=== PATIENT | female | born 1950 | race Caucasian/White ===

== ENCOUNTER 2019-01-02 22:30 | Inpatient (IN) | payer MEDICARE, BC ==
[2019-01-02] MEDS ORDERED: SODIUM CHLORIDE 0.9% 1,000 ML IV STA (23:11)
[2019-01-02 23:23] LABS: Basophils # (A) 0.1 k/uL (0-0.2); Basophils % (A) 1 %; Eosinophils # (A) 0.2 k/uL (0-0.7); Eosinophils % (A) 2 %; HGB 10.7 gm/dL (11.4-16.0); Lymphocytes # (A) 1.5 k/uL (1.0-4.8); Lymphocytes % (A) 18 %; MCHC 32.4 g/dL (31.0-37.0); MCV 86.5 fL (80.0-100.0); Mean Platelet Volume 6.3; Monocytes # (A) 0.5 k/uL (0-1.0); Monocytes % (A) 6 %; Neutrophils % (A) 72 %; Platelet Count 272 k/uL (150-450); RBC 3.81 m/uL (3.80-5.40); WBC 8.4 k/uL (3.8-10.6)
[2019-01-02 23:43] LABS: Albumin 3.3 g/dL (3.5-5.0); Calcium 10.3 mg/dL (8.4-10.2); Magnesium 1.9 mg/dL (1.6-2.3); Phosphorus 3.1 mg/dL (2.5-4.5); Potassium 4.8 mmol/L (3.5-5.1); Total Bilirubin 0.3 mg/dL (0.2-1.3); Total Protein 6.1 g/dL (6.3-8.2)
--- NOTE | 2019-01-03 00:21 | XR ---
EXAM: XR Abdomen, 1 View CLINICAL HISTORY: ITS.REASON XR Reason: abdominal pain TECHNIQUE: Frontal supine view of the abdomen/pelvis. COMPARISON: No relevant prior studies available. IMPRESSION: Nonspecific bowel gas pattern. No definite obstruction.
--- NOTE | 2019-01-03 00:29 | ED ---
General Adult HPI - General Source: patient, RN notes reviewed, old records reviewed Mode of arrival: EMS Limitations: no limitations <Vini Carter - Last Filed: 01/03/19 04:19> <Robert Burgess - Last Filed: 01/06/19 09:07> - General Chief complaint: Abdominal Pain Stated complaint: Near Syncope Time Seen by Provider: 01/02/19 22:48 - History of Present Illness Initial comments: 68-year-old female patient past medical history of hypertension, hyperlipidemia presents to ED with complaint of dizziness and black stool. Patient reports that she was standing for laundry at the washing machine when she began to feel lightheaded. Patient reports that this then resolved. Patient reports that she wanted a bowel movement had black stool. Patient then called EMS to present to Hospital. Upon presentation Hospital admission is currently asymptomatic. Patient denies any dizziness, denies any headache, denies any altered mental status. Patient denies any chest pain shortness of breath abdominal pain. Mariana ent denies any dysuria. Systemic: Pt denies fatigue, myalgia, fever/chills, rash. Pt denies weakness, night sweats, weight loss. Neuro: Pt denies headache, visual disturbances, syncope or pre-syncope. HEENT: Pt denies ocular discharge or irritation, otalgia, rhinorrhea, pharyngitis or notable lymphadenopathy. Cardiopulmonary: Pt denies chest pain, SOB, heart palpitations, dyspnea on exertion. Abdominal/GI: Pt denies abdominal pain, n/v/d. : Pt denies dysuria, burning w/ urination, frequency/urgency. Denies new onset urinary or bowel incontinence. MSK: Pt denies myalgia, loss of strength or function in extremities. Neuro: Pt denies new onset weakness, paresthesias. (Vini Carter) - Related Data Home Medications Medication Instructions Recorded Confirmed ALPRAZolam [Xanax] 0.5 mg PO DAILY PRN 01/02/19 01/02/19 Cholecalciferol [Vitamin D3] 1,000 unit PO DAILY 01/02/19 01/02/19 Glucosamine Sulfate 500 mg PO BID 01/02/19 01/02/19 Irbesartan 300 mg PO DAILY 01/02/19 01/02/19 Multivitamins, Thera [Multivitamin 1 tab PO DAILY 01/02/19 01/02/19 (formulary)] Pravastatin Sodium [Pravachol] 20 mg PO DAILY 01/02/19 01/02/19 Selenium 100 mcg PO DAILY 01/02/19 01/02/19 Vitamin E 1,000 unit PO DAILY 01/02/19 01/02/19 Previous Rx's Medication Instructions Recorded Acetaminophen Tab [Tylenol] 650 mg PO Q6HR PRN tab 01/06/19 Pantoprazole [Protonix] 40 mg PO AC-BID #60 tablet. 01/06/19 traMADol HCl [Ultram] 50 mg PO TID PRN #21 tab 01/06/19 Allergies Allergy/AdvReac Type Severity Reaction Status Date / Time Sulfa (Sulfonamide Allergy Rash/Hives Verified 01/02/19 23:04 Antibiotics) Review of Systems ROS Other: All systems not noted in ROS Statement are negative. <Vini Carter - Last Filed: 01/03/19 04:19> ROS Other: All systems not noted in ROS Statement are negative. <Robert Burgess - Last Filed: 01/06/19 09:07> ROS Statement: Those systems with pertinent positive or pertinent negative responses have been documented in the HPI. Past Medical History Past Medical History: Hyperlipidemia, Hypertension History of Any Multi-Drug Resistant Organisms: None Reported Past Surgical History: Back Surgery, Joint Replacement, Tubal Ligation Past Psychological History: No Psychological Hx Reported Smoking Status: Former smoker Past Alcohol Use History: Occasional Past Drug Use History: None Reported <Vini Carter - Last Filed: 01/03/19 04:19> General Exam Limitations: no limitations <Vini Carter - Last Filed: 01/03/19 04:19> - General Exam Comments Initial Comments: Constitutional: NAD, AOX3, Pt has pleasant affect. HEENT: NC/AT, trachea midline, neck supple, no lymphadenopathy. Posterior pharynx non erythematous, without exudates. External ears appear normal, without discharge. Mucous membranes moist. Eyes PERRLA, EOM intact. There is no scleral icterus. No pallor noted. Cardiopulmonary: RRR, no murmurs, rubs or gallops, no JVD noted. Lungs CTAB in anterior and posterior menjivar. No peripheral edema. Abdominal exam: Abdomen soft and non-distended. Abdomen non-tender to palpation in all 4 quadrants. Bowel sounds active in LLQ. No hepatosplenomegaly. No ecchymosis Neuro: CN II-XII grossly intact. No nuchal rigidity. MSK: No posterior calf tenderness bilaterally, homans sign negative bilaterally. Posterior tibialis and radial pulse +2 bilaterally. Sensation intact in upper and lower extremities. Full active ROM in upper and lower extremities, 5/5 stregnth. Rectal: No external hemorrhoids or active bleeding noted. Chaperogned by MARK Barillas. (Vini Carter) Course Vital Signs 01/02/19 01/02/19 01/03/19 22:40 22:42 01:25 Temperature 98.7 F Pulse Rate 79 Pulse Rate [ Sitting] Pulse Rate [ Standing] Pulse Rate [ Supine] Respiratory 20 Rate Blood Pressure 138/92 124/60 Blood Pressure [Sitting] Blood Pressure [Standing] Blood Pressure [Supine] O2 Sat by Pulse 98 Oximetry 01/03/19 01/03/19 01/03/19 02:38 03:14 04:20 Temperature 98.8 F 99.6 F Pulse Rate 90 76 Pulse Rate [ 92 Sitting] Pulse Rate [ 96 Standing] Pulse Rate [ 77 Supine] Respiratory 16 16 18 Rate Blood Pressure 160/91 134/78 Blood Pressure 128/85 [Sitting] Blood Pressure 124/89 [Standing] Blood Pressure 124/82 [Supine] O2 Sat by Pulse 99 97 97 Oximetry Medical Decision Making - Lab Data Result diagrams: 01/02/19 22:42 01/02/19 22:42 - EKG Data -: EKG Interpreted by Me (and dr sinha) <Vini Carter - Last Filed: 01/03/19 04:19> - Lab Data Result diagrams: 01/06/19 08:03 01/05/19 05:02 <Robert Burgess - Last Filed: 01/06/19 09:07> - Medical Decision Making 68-year-old female patient past medical history of hypertension, hyperlipidemia presents to ED with complaint of dizziness and black stool. Patient reports that she was standing for laundry at the washing machine when she began to feel lightheaded. Patient reports that this then resolved. Patient reports that she wanted a bowel movement had black stool. Patient then called EMS to present to Hospital. Upon presentation Hospital admission is currently asymptomatic. Patient denies any dizziness, denies any headache, denies any altered mental status. Patient denies any chest pain shortness of breath abdominal pain. Patient denies any dysuria. Patient vital signs stable, afebrile. Physical exam did not display acute pathology. Laboratory investigations revealed mild anemia, 10.7 hemoglobin. CMP revealed mild elevation of V1 at 37. Satting within normal limits. UA negative. Troponin negative. Magnesium and phosphorus within normal limits. Hemoccult positive. EKG not concerning for acute ischemia. Patient to be admitted for GI bleed. At time of admission CT abdomen and pelvis pending per request of accepting physician. Case discussed with Dr. Sinha. (Vini Carter) I saw this patient in conjunction with the physician operator assistant i cementing. I performed independent history and physical exam. Agree with case management. (Robert Burgess) - Lab Data Lab Results 01/02/19 01/02/19 01/02/19 Range/Units 22:42 22:42 22:42 WBC 8.4 (3.8-10.6) k/uL RBC 3.81 (3.80-5.40) m/uL Hgb 10.7 L (11.4-16.0) gm/dL Hct 33.0 L (34.0-46.0) % MCV 86.5 (80.0-100.0) fL MCH 28.0 (25.0-35.0) pg MCHC 32.4 (31.0-37.0) g/dL RDW 13.0 (11.5-15.5) % Plt Count 272 (150-450) k/uL Neutrophils % 72 % Lymphocytes % 18 % Monocytes % 6 % Eosinophils % 2 % Basophils % 1 % Neutrophils # 6.0 (1.3-7.7) k/uL Lymphocytes # 1.5 (1.0-4.8) k/uL Monocytes # 0.5 (0-1.0) k/uL Eosinophils # 0.2 (0-0.7) k/uL Basophils # 0.1 (0-0.2) k/uL Sodium 138 (137-145) mmol/L Potassium 4.8 (3.5-5.1) mmol/L Chloride 106 (98-107) mmol/L Carbon Dioxide 26 (22-30) mmol/L Anion Gap 6 mmol/L BUN 37 H (7-17) mg/dL Creatinine 0.95 (0.52-1.04) mg/dL Est GFR (CKD-EPI)AfAm 71 (>60 ml/min/1.73 sqM) Est GFR (CKD-EPI)NonAf 61 (>60 ml/min/1.73 sqM) Glucose 120 H (74-99) mg/dL Plasma Lactic Acid Marquise 1.3 (0.7-2.0) mmol/L Calcium 10.3 H (8.4-10.2) mg/dL Phosphorus 3.1 (2.5-4.5) mg/dL Magnesium 1.9 (1.6-2.3) mg/dL Total Bilirubin 0.3 (0.2-1.3) mg/dL AST 21 (14-36) U/L ALT 26 (9-52) U/L Alkaline Phosphatase 85 (38-126) U/L Troponin I (0.000-0.034) ng/mL Total Protein 6.1 L (6.3-8.2) g/dL Albumin 3.3 L (3.5-5.0) g/dL Lipase 151 (23-300) U/L Urine Color Urine Appearance (Clear) Urine pH (5.0-8.0) Ur Specific [place] (1.001-1.035) Urine Protein (Negative) Urine Glucose (UA) (Negative) Urine Ketones (Negative) Urine Blood (Negative) Urine Nitrite (Negative) Urine Bilirubin (Negative) Urine Urobilinogen (<2.0) mg/dL Ur Leukocyte Esterase (Negative) Urine RBC (0-5) /hpf Urine WBC (0-5) /hpf Ur Squamous Epith Cells (0-4) /hpf Urine Bacteria (None) /hpf Hyaline Casts (0-2) /lpf Urine Mucus (None) /hpf Stool Occult Blood (Negative) 01/02/19 01/03/19 01/03/19 Range/Units 22:42 01:05 02:00 WBC (3.8-10.6) k/uL RBC (3.80-5.40) m/uL Hgb (11.4-16.0) gm/dL Hct (34.0-46.0) % MCV (80.0-100.0) fL MCH (25.0-35.0) pg MCHC (31.0-37.0) g/dL RDW (11.5-15.5) % Plt Count (150-450) k/uL Neutrophils % % Lymphocytes % % Monocytes % % Eosinophils % % Basophils % % Neutrophils # (1.3-7.7) k/uL Lymphocytes # (1.0-4.8) k/uL Monocytes # (0-1.0) k/uL Eosinophils # (0-0.7) k/uL Basophils # (0-0.2) k/uL Sodium (137-145) mmol/L Potassium (3.5-5.1) mmol/L Chloride (98-107) mmol/L Carbon Dioxide (22-30) mmol/L Anion Gap mmol/L BUN (7-17) mg/dL Creatinine (0.52-1.04) mg/dL Est GFR (CKD-EPI)AfAm (>60 ml/min/1.73 sqM) Est GFR (CKD-EPI)NonAf (>60 ml/min/1.73 sqM) Glucose (74-99) mg/dL Plasma Lactic Acid Marquise (0.7-2.0) mmol/L Calcium (8.4-10.2) mg/dL Phosphorus (2.5-4.5) mg/dL Magnesium (1.6-2.3) mg/dL Total Bilirubin (0.2-1.3) mg/dL AST (14-36) U/L ALT (9-52) U/L Alkaline Phosphatase (38-126) U/L Troponin I <0.012 (0.000-0.034) ng/mL Total Protein (6.3-8.2) g/dL Albumin (3.5-5.0) g/dL Lipase (23-300) U/L Urine Color Yellow Urine Appearance Clear (Clear) Urine pH 5.5 (5.0-8.0) Ur Specific [place] 1.016 (1.001-1.035) Urine Protein Negative (Negative) Urine Glucose (UA) Negative (Negative) Urine Ketones Negative (Negative) Urine Blood Negative (Negative) Urine Nitrite Negative (Negative) Urine Bilirubin Negative (Negative) Urine Urobilinogen <2.0 (<2.0) mg/dL Ur Leukocyte Esterase Small H (Negative) Urine RBC <1 (0-5) /hpf Urine WBC 3 (0-5) /hpf Ur Squamous Epith Cells <1 (0-4) /hpf Urine Bacteria Rare H (None) /hpf Hyaline Casts 3 H (0-2) /lpf Urine Mucus Rare H (None) /hpf Stool Occult Blood Positive H (Negative) - EKG Data EKG Comments: Ventricular rate 79, FL interval 136, QRS 86, QT/QTC 372/426. Normal sinus rhythm, inferior infarct age undetermined. (Vini Carter) Disposition Is patient prescribed a controlled substance at d/c from ED?: No <Vini Carter - Last Filed: 01/03/19 04:19> <Robert Burgess - Last Filed: 01/06/19 09:07> Clinical Impression: GI bleed Disposition: ADMITTED IP TO THIS HOSP Condition: Serious
[2019-01-03 02:15] LABS: Appearance,Urine Clear (Clear); Bacteria,Urine Rare /hpf; Bilirubin,Urine Negative (Negative); Blood,Urine Negative (Negative); Color,Urine Yellow; Glucose,Urine (UA) Negative (Negative); Hyaline Casts,Urine 3 /lpf (0-2); Ketones,Urine Negative (Negative); Leukocyte Esterase,Urine Small (Negative); Mucus,Urine Rare /hpf; Nitrite,Urine Negative (Negative); PH, Urine 5.5 (5.0-8.0); Protein,Urine Negative (Negative); RBC,Urine <1 /hpf (0-5); Specific Gravity,Urine 1.016 (1.001-1.035); Squamous Epithelial Cell,Urine <1 /hpf (0-4); Urobilinogen,Urine <2.0 mg/dL (<2.0)
[2019-01-03] MEDS ORDERED: NALOXONE 0.4 MG/ML 1 ML VIAL IV PRN (03:15)
[2019-01-03] MEDS ORDERED: ACETAMINOPHEN TAB 325 MG TAB PO STA (03:20)
--- NOTE | 2019-01-03 03:36 | CT ---
EXAM: CT Abdomen and Pelvis With Intravenous Contrast CLINICAL HISTORY: ITS.REASON CT Reason: Pain TECHNIQUE: Axial computed tomography images of the abdomen and pelvis with intravenous contrast. CTDI is 29 mGy and DLP is 1617 mGy-cm. This CT exam was performed using one or more of the following dose reduction techniques: automated exposure control, adjustment of the mA and/or kV according to patient size, and/or use of iterative reconstruction technique. COMPARISON: KUB 01/03/19 FINDINGS: Lung bases: No mass. No consolidation. ABDOMEN: Liver: Unremarkable. Gallbladder and bile ducts: Unremarkable. Pancreas: Unremarkable. Spleen: Unremarkable. Adrenals: 2.5 cm right adrenal nodule. Kidneys and ureters: No hydronephrosis. Stomach and bowel: No bowel obstruction or bowel wall thickening. Colonic diverticulosis. Diffusely fluid-filled small bowel. PELVIS: Appendix: No evidence of appendicitis. Bladder: Unremarkable. Reproductive: Unremarkable. ABDOMEN and PELVIS: Intraperitoneal space: Unremarkable. Bones/joints: No acute fractures. Degenerative changes at L4-5 and L5- S1. Soft tissues: Unremarkable. Vasculature: No abdominal aortic aneurysm. Lymph nodes: No enlarged lymph nodes. IMPRESSION: 1. Diffusely fluid-filled small bowel, correlate with gastroenteritis. 2. Colonic diverticulosis. 3. 2.5 cm right adrenal nodule.
[2019-01-03] MEDS: SODIUM CHLORIDE 0.9% 1,000 ML IV SCH ×2 (04:47→20:56)
--- NOTE | 2019-01-03 06:58 | P.HPIM ---
History of Present Illness H&P Date: 01/03/19 Chief Complaint: dizziness and dark stools The patient is a 68-year-old female patient past medical history of hypertension, hyperlipidemia presents to ED via EMS with complaint of dizziness and black stool. Patient reports that she was standing for laundry at the washing machine when she began to feel lightheaded and dizzy and felt like she was about to pass out, her was able to grab a chair quickly to prevent a fall, there was no head trauma. Patient reports that this then resolved. Patient reports that she wanted a bowel movement had black stool. She denied any significant abdominal pain, denied chest pain or shortness of breath, also denied any diarrhea. Apparently the patient has been taking ibuprofen around the clock for the last 2 weeks due to severe headaches, she reported compliance with dosing and schedule based on directions on the bottle. She was also had elevated blood pressures and reports that her antihypertensive regimen was recently changed by her PCP this past Saturday. She denies any focal weakness slurred speech. In the ER the patient had a comprehensive workup, she was noted to be stool occult positive, CBC revealed anemia with a hemoglobin of 10.7 and hematocrit of 33, platelets were normal at 272. EKG done showed normal sinus rhythm troponin was less than 0.012. KUB showed nonspecific bowel gas pattern with no definite obstruction Review of Systems Pertinent positives per HPI all other review of systems otherwise negative Past Medical History Past Medical History: Hyperlipidemia, Hypertension History of Any Multi-Drug Resistant Organisms: None Reported Past Surgical History: Back Surgery, Joint Replacement, Tubal Ligation Past Psychological History: No Psychological Hx Reported Smoking Status: Former smoker Past Alcohol Use History: Occasional Past Drug Use History: None Reported Medications and Allergies Home Medications Medication Instructions Recorded Confirmed Type ALPRAZolam [Xanax] 0.5 mg PO DAILY PRN 01/02/19 01/02/19 History Ascorbic Acid [Vitamin C] 500 mg PO DAILY 01/02/19 01/02/19 History Aspirin [[place] Aspirin EC] 81 mg PO DAILY 01/02/19 01/02/19 History Cholecalciferol [Vitamin D3] 1,000 unit PO DAILY 01/02/19 01/02/19 History Glucosamine Sulfate 500 mg PO BID 01/02/19 01/02/19 History Irbesartan 300 mg PO DAILY 01/02/19 01/02/19 History Multivitamins, Thera [Multivitamin 1 tab PO DAILY 01/02/19 01/02/19 History (formulary)] Pravastatin Sodium [Pravachol] 20 mg PO DAILY 01/02/19 01/02/19 History Selenium 100 mcg PO DAILY 01/02/19 01/02/19 History Vitamin E 1,000 unit PO DAILY 01/02/19 01/02/19 History Allergies Allergy/AdvReac Type Severity Reaction Status Date / Time Sulfa (Sulfonamide Allergy Rash/Hives Verified 01/02/19 23:04 Antibiotics) Physical Exam Vitals: Vital Signs Temp Pulse Pulse Pulse Pulse Resp BP 01/03/19 04:40 98.9 F 80 16 01/03/19 04:20 99.6 F 76 18 134/78 01/03/19 03:14 98.8 F 90 16 160/91 01/03/19 02:38 92 96 77 16 01/03/19 01:25 124/60 01/02/19 22:42 98.7 F 79 20 01/02/19 22:40 138/92 BP BP BP Pulse Ox 01/03/19 04:40 122/81 97 01/03/19 04:20 97 01/03/19 03:14 97 01/03/19 02:38 128/85 124/89 124/82 99 01/03/19 01:25 01/02/19 22:42 98 01/02/19 22:40 Intake and Output 01/02/19 01/02/19 01/03/19 14:59 22:59 06:59 Intake Total 590 Balance 590 Intake: Oral 590 Other: Weight 109.769 kg Constitutional: No acute distress, conversant, pleasant Eyes: Anicteric sclerae, moist conjunctiva, no lid-lag, PERRLA ENMT: NC/AT,Oropharynx clear, no erythema, exudates Neck:Supple, FROM, no masses, or JVD, No carotid bruits; No thyromegaly Lungs: Clear to auscultation, Clear to percussion, Normal respiratory effort, no accessory muscle use Cardiovascular: Heart regular in rate and rhythm, No murmurs, gallops, or rubs no peripheral edema Abdominal: Soft Nontender, nom distended, no guarding, no rebound or rigidity, Normoactive bowel sounds No hepatomegaly, No splenomegaly, No palpable mass No abdominal wall hernia noted Skin: Normal temperature, tone, texture, turgor, No induration No subcutaneous nodules, No rash, lesions, No ulcers Extremities:No digital cyanosis No clubbing, Pedal pulses intact and symmetrical Radial pulses intact and symmetrical Normal gait and station, No calf tenderness Psychiatric: Alert and oriented to person, place and time, Appropriate affect Intact judgement Neuro: Muscles Strength 5/5 in all 4 extremities, Sensation to light touch grossly present throughout, Cranial nerves II-XII grossly intact. No focal sen constance deficits Results CBC & Chem 7: 01/02/19 22:42 01/02/19 22:42 Labs: Abnormal Lab Results - Last 24 Hours (Table) 01/02/19 01/02/19 01/03/19 Range/Units 22:42 22:42 01:05 Hgb 10.7 L (11.4-16.0) gm/dL Hct 33.0 L (34.0-46.0) % BUN 37 H (7-17) mg/dL Glucose 120 H (74-99) mg/dL Calcium 10.3 H (8.4-10.2) mg/dL Total Protein 6.1 L (6.3-8.2) g/dL Albumin 3.3 L (3.5-5.0) g/dL Ur Leukocyte Esterase (Negative) Urine Bacteria (None) /hpf Hyaline Casts (0-2) /lpf Urine Mucus (None) /hpf Stool Occult Blood Positive H (Negative) 01/03/19 Range/Units 02:00 Hgb (11.4-16.0) gm/dL Hct (34.0-46.0) % BUN (7-17) mg/dL Glucose (74-99) mg/dL Calcium (8.4-10.2) mg/dL Total Protein (6.3-8.2) g/dL Albumin (3.5-5.0) g/dL Ur Leukocyte Esterase Small H (Negative) Urine Bacteria Rare H (None) /hpf Hyaline Casts 3 H (0-2) /lpf Urine Mucus Rare H (None) /hpf Stool Occult Blood (Negative) Thrombosis Risk Factor Assmnt - Choose All That Apply Any of the Below Risk Factors Present?: No Other Risk Factors: Yes Each Risk Factor Represents 2 Points: Age 61-74 years Other congenital or acquired thrombophilia - If yes, enter type in comment: No Thrombosis Risk Factor Assessment Total Risk Factor Score: 2 Thrombosis Risk Factor Assessment Level: Low Risk Assessment and Plan (1) Upper GI bleed Current Visit: Yes Status: Acute Code(s): K92.2 - GASTROINTESTINAL HEMORRHAGE, UNSPECIFIED SNOMED Code(s): 74237127 (2) Acute blood loss anemia Current Visit: Yes Status: Acute Code(s): D62 - ACUTE POSTHEMORRHAGIC ANEMIA SNOMED Code(s): 646873426 (3) Pre-syncope Current Visit: Yes Status: Acute Code(s): R55 - SYNCOPE AND COLLAPSE SNOMED Code(s): 028252723 (4) Essential hypertension Current Visit: Yes Status: Acute Code(s): I10 - ESSENTIAL (PRIMARY) HYPERTENSION SNOMED Code(s): 11445793 (5) Hyperlipidemia Current Visit: Yes Status: Acute Code(s): E78.5 - HYPERLIPIDEMIA, UNSPECIFIED SNOMED Code(s): 67273018 Plan: The patient is admitted anticipated greater than 2 midnight stay with concern for upper GI bleeding after presenting with presyncope lightheadedness and dark melanotic stool which are Hemoccult positive, patient is currently hemodynamically stable is noted to be anemic with a hemoglobin of 10.7 likely acute blood loss anemia secondary to GI bleed, we will continue to check serial CBCs to monitor, will type and cross and transfuse if hemoglobin less than 7. Suspect this might be secondary to ulcer or gastritis attributed to NSAID use. We'll obtain CT abdomen and pelvis, treat supportively with antiemetics and morphine as needed. We'll plan to consult GI to evaluate for EGD. I will continue IV fluids, noted orthostatics are negative. Continue to monitor clinical course. CODE STATUS: Full code Discussed plan of care with: Patient and her Juan Francisco Anticipated discharge: 1-2 days Prophylaxis: Protonix And SCDs
[2019-01-03] MEDS: PANTOPRAZOLE 40 MG/10 ML VIAL IVP SCH ×2 (07:08→20:50)
[2019-01-03 07:57] LABS: Basophils % (A) 1 %; Eosinophils # (A) 0.1 k/uL (0-0.7); Eosinophils % (A) 2 %; HCT 28.9 % (34.0-46.0); Lymphocytes # (A) 1.8 k/uL (1.0-4.8); Lymphocytes % (A) 24 %; MCH 27.9 pg (25.0-35.0); MCV 87.2 fL (80.0-100.0); Mean Platelet Volume 6.3; Monocytes # (A) 0.5 k/uL (0-1.0); Monocytes % (A) 7 %; Neutrophils # (A) 4.9 k/uL (1.3-7.7); Neutrophils % (A) 66 %; Platelet Count 253 k/uL (150-450); RBC 3.31 m/uL (3.80-5.40); RDW 12.9 % (11.5-15.5); WBC 7.5 k/uL (3.8-10.6)
[2019-01-03 08:04] LABS: HGB 9.2 gm/dL (11.4-16.0)
[2019-01-03] MEDS ORDERED: ALPRAZolam 0.5 MG TAB PO PRN (12:06)
--- NOTE | 2019-01-03 12:27 | P.PN ---
Progress Note - Text Progress Note Date: 01/03/19 Please refer to the H&P for official documentation. Patient was briefly seen around 12:30 PM. This is a 68-year-old female with PMH of chronic headaches undergoing outpatient workup, taken ibuprofen presents the ED for melena and dizziness. her stools positive for occult blood.initial hemoglobin on presentation was 10.7, 9.2 on repeat the following day. Patient reports taking aspirin for her ASCVD risk and ibuprofen concurrently as needed for her headaches (2 WEEKS). patient reports having a bowel movement this morning, with blood and black stools. She denies any dizziness, chest pain, shortness breath or palpitations. She is able to ambulate to the bathroom and back to her bed without difficulties. Case was discussed with Dr. Shen, possible EGD tomorrow. Continue Protonix 40 mg IV twice a day. Monitor CBC twice a day. Telemetry monitoring.
[2019-01-03] MEDS: ACETAMINOPHEN TAB 325 MG TAB PO PRN ×2 (12:49→20:51)
[2019-01-03 14:24] LABS: Basophils % (A) 1 %; Eosinophils # (A) 0.1 k/uL (0-0.7); Eosinophils % (A) 2 %; HCT 29.4 % (34.0-46.0); HGB 9.4 gm/dL (11.4-16.0); Hypochromasia Slight; Lymphocytes # (A) 1.5 k/uL (1.0-4.8); Lymphocytes % (A) 23 %; MCH 28.1 pg (25.0-35.0); MCHC 32.1 g/dL (31.0-37.0); MCV 87.7 fL (80.0-100.0); Mean Platelet Volume 6.6; Monocytes # (A) 0.4 k/uL (0-1.0); Monocytes % (A) 6 %; Neutrophils # (A) 4.4 k/uL (1.3-7.7); Neutrophils % (A) 68 %; Platelet Count 278 k/uL (150-450); RBC 3.36 m/uL (3.80-5.40); RDW 13.1 % (11.5-15.5); WBC 6.5 k/uL (3.8-10.6)
--- NOTE | 2019-01-03 18:46 | P.CONS ---
History of Present Illness - Reason for Consult Consult date: 01/03/19 GI bleed Requesting physician: Grady Oneil - Chief Complaint Near syncope - History of Present Illness The patient is a very pleasant 68-year-old with a medical history significant for hypertension, hyperlipidemia who presents after a near syncopal episode. The patient reports that she has been using ibuprofen around the clock for the past 2 weeks and the treatment of a headache. She presented to the hospital after having an episode of near syncope where she felt as though she was going to collapse and was called by her who witnessed the episode. She repo rts black bowel movements yesterday prior to presentation. She denies any gross rectal bleeding. No prior history of GI bleeding. No nausea, vomiting, hematemesis or coffee-ground emesis reported. On presentation to the hospital the patient was found to have a hemoglobin of 10.7 which trended to 9.2. Stool testing was positive for occult blood. Liver enzymes were significant for a total bilirubin 0.3, alkaline phosphatase 85, AST 21 and ALT 26. Review of Systems REVIEW OF SYSTEMS: CONSTITUTIONAL: Denies any fevers, chills, weight change or fatigue. CARDIOVASCULAR: Denies any chest pain, palpitations high or low blood pressures RESPIRATORY: Denies any shortness of breath, hemoptysis or cough. GENITOURINARY: No dysuria or hematuria. MUSCULOSKELETAL: No weakness reported. SKIN: Denies any new rashes or lesions, jaundice or pallor. PSYCHIATRIC: Denies any depression or anxiety. NEUROLOGY: Patient does report recent headaches for which she has been taking ibuprofen [id number], the patient had a near syncopal episode prior to presentation. EARS/NOSE/THROAT: No recent hearing change, congestion, nasal discharge or sore throat. EYES: No pain in eyes, discharge or change in vision. GASTROINTESTINAL: As per HPI. Past Medical History Past Medical History: Hyperlipidemia, Hypertension History of Any Multi-Drug Resistant Organisms: None Reported Past Surgical History: Back Surgery, Joint Replacement, Tubal Ligation Past Psychological History: No Psychological Hx Reported Smoking Status: Former smoker Past Alcohol Use History: Occasional Past Drug Use History: None Reported Additional History: Past family history: Reviewed with the patient and noncontributory to current medical presentation. Medications and Allergies Home Medications Medication Instructions Recorded Confirmed Type ALPRAZolam [Xanax] 0.5 mg PO DAILY PRN 01/02/19 01/02/19 History Ascorbic Acid [Vitamin C] 500 mg PO DAILY 01/02/19 01/02/19 History Aspirin [Wilkin Aspirin EC] 81 mg PO DAILY 01/02/19 01/02/19 History Cholecalciferol [Vitamin D3] 1,000 unit PO DAILY 01/02/19 01/02/19 History Glucosamine Sulfate 500 mg PO BID 01/02/19 01/02/19 History Irbesartan 300 mg PO DAILY 01/02/19 01/02/19 History Multivitamins, Thera [Multivitamin 1 tab PO DAILY 01/02/19 01/02/19 History (formulary)] Pravastatin Sodium [Pravachol] 20 mg PO DAILY 01/02/19 01/02/19 History Selenium 100 mcg PO DAILY 01/02/19 01/02/19 History Vitamin E 1,000 unit PO DAILY 01/02/19 01/02/19 History Allergies Allergy/AdvReac Type Severity Reaction Status Date / Time Sulfa (Sulfonamide Allergy Rash/Hives Verified 01/02/19 23:04 Antibiotics) Physical Exam Vitals: Vital Signs Temp Pulse Pulse Pulse Pulse Resp BP 01/03/19 15:00 98.3 F 78 16 01/03/19 07:00 98.3 F 70 18 01/03/19 04:40 98.9 F 80 16 01/03/19 04:20 99.6 F 76 18 134/78 01/03/19 03:14 98.8 F 90 16 160/91 01/03/19 02:38 92 96 77 16 01/03/19 01:25 124/60 01/02/19 22:42 98.7 F 79 20 01/02/19 22:40 138/92 BP BP BP Pulse Ox 01/03/19 15:00 146/83 97 01/03/19 07:00 123/71 97 01/03/19 04:40 122/81 97 01/03/19 04:20 97 01/03/19 03:14 97 01/03/19 02:38 128/85 124/89 124/82 99 01/03/19 01:25 01/02/19 22:42 98 01/02/19 22:40 Intake and Output 01/03/19 01/03/19 01/03/19 06:59 14:59 22:59 Intake Total 590 Balance 590 Intake: Oral 590 Other: # Voids 2 # Bowel Movements 1 Results CBC & Chem 7: 01/03/19 14:09 01/02/19 22:42 Labs: Abnormal Lab Results - Last 24 Hours (Table) 01/02/19 01/02/19 01/03/19 Range/Units 22:42 22:42 01:05 RBC (3.80-5.40) m/uL Hgb 10.7 L (11.4-16.0) gm/dL Hct 33.0 L (34.0-46.0) % BUN 37 H (7-17) mg/dL Glucose 120 H (74-99) mg/dL Calcium 10.3 H (8.4-10.2) mg/dL Total Protein 6.1 L (6.3-8.2) g/dL Albumin 3.3 L (3.5-5.0) g/dL Ur Leukocyte Esterase (Negative) Urine Bacteria (None) /hpf Hyaline Casts (0-2) /lpf Urine Mucus (None) /hpf Stool Occult Blood Positive H (Negative) 01/03/19 01/03/19 01/03/19 Range/Units 02:00 06:59 14:09 RBC 3.31 L 3.36 L (3.80-5.40) m/uL Hgb 9.2 L D 9.4 L (11.4-16.0) gm/dL Hct 28.9 L 29.4 L (34.0-46.0) % BUN (7-17) mg/dL Glucose (74-99) mg/dL Calcium (8.4-10.2) mg/dL Total Protein (6.3-8.2) g/dL Albumin (3.5-5.0) g/dL Ur Leukocyte Esterase Small H (Negative) Urine Bacteria Rare H (None) /hpf Hyaline Casts 3 H (0-2) /lpf Urine Mucus Rare H (None) /hpf Stool Occult Blood (Negative) CT scan - abdomen: report reviewed (Computed tomography scan of the abdomen significant for colonic diverticulosis, and adrenal nodule, and fluid-filled small bowel.) Assessment and Plan (1) Acute blood loss anemia Narrative/Plan: Patient presenting to the hospital after a near syncope and with reports of melena and stool testing positive for occult blood in the setting of recent NSAI D use, suspicion is for upper GI bleed with differential including erosive esophagitis/gastritis, peptic ulcer disease, or other etiology. Current Visit: Yes Status: Acute Code(s): D62 - ACUTE POSTHEMORRHAGIC ANEMIA SNOMED Code(s): 182706542 (2) GI bleed Current Visit: Yes Status: Acute Code(s): K92.2 - GASTROINTESTINAL HEMORRHAGE, UNSPECIFIED SNOMED Code(s): 83350168 (3) Pre-syncope Current Visit: Yes Status: Acute Code(s): R55 - SYNCOPE AND COLLAPSE SN OMED Code(s): 022366651 Plan: Supportive care Okay for clear liquid Continue Protonix twice a day Continue to monitor hemoglobin and hematocrit and transfuse as needed Continue to avoid NSAID use Okay for Tylenol for headaches Nothing by mouth after midnight Plan for EGD for further evaluation in the morning Further recommendations pending findings of EGD Thank you for allowing us to participate in the care of the patient we will continue to follow
[2019-01-03] MEDS: PRAVASTATIN SODIUM 20 MG TAB PO SCH (20:50)
[2019-01-03 23:41] LABS: Basophils % (A) 1 %; Eosinophils # (A) 0.2 k/uL (0-0.7); Eosinophils % (A) 2 %; HCT 20.9 % (34.0-46.0); Hypochromasia Slight; Lymphocytes % (A) 27 %; MCH 26.6 pg (25.0-35.0); MCHC 30.1 g/dL (31.0-37.0); MCV 88.4 fL (80.0-100.0); Mean Platelet Volume 7.2; Monocytes # (A) 0.4 k/uL (0-1.0); Monocytes % (A) 6 %; Neutrophils # (A) 4.9 k/uL (1.3-7.7); Neutrophils % (A) 64 %; Platelet Count 266 k/uL (150-450); RBC 2.37 m/uL (3.80-5.40); RDW 13.5 % (11.5-15.5); WBC 7.6 k/uL (3.8-10.6)
[2019-01-03 23:46] LABS: Glucose,Whole Blood 125 mg/dL (75-99)
[2019-01-04] LABS: HGB 6.3 gm/dL (11.4-16.0)
[2019-01-04 00:17] LABS: Prothrombin Time 10.9 sec (9.0-12.0)
--- NOTE | 2019-01-04 00:51 | P.PN ---
Progress Note - Text Progress Note Date: 01/03/19 Notified by nursing that CODE ANGELICA was called approximately 2300. Apparently patient became lightheaded and dizzy and had a syncopal episode after having a large bloody clot bowel movement along with hematemesis. There was loss of consciousness for less than a minute where the patient was unresponsive, but there was no head trauma. Patient was noted to be in V. tachycardia and then subsequently converted to normal sinus rhythm on her own. Patient was hypotensive with BP 92/60 , prior Hg 9.4 Constitutional: No acute distress, conversant, pleasant Eyes: Anicteric sclerae, moist conjunctiva, no lid-lag, PERRLA ENMT: NC/AT,Oropharynx clear, no erythema, exudates Neck:Supple, FROM, no masses, or JVD, No carotid bruits; No thyromegaly Lungs: Clear to auscultation, Clear to percussion, Normal respiratory effort, no accessory muscle use Cardiovascular: Heart regular in rate and rhythm, No murmurs, gallops, or rubs no peripheral edema Abdominal: Soft Nontender, nom distended, no guarding, no rebound or rigidity, Normoactive bowel sounds No hepatomegaly, No splenomegaly, No palpable mass No abdominal wall hernia noted Skin: Normal temperature, tone, texture, turgor, No induration No subcutaneous nodules, No rash, lesions, No ulcers Extremities:No digital cyanosis No clubbing, Pedal pulses intact and symmetrical Radial pulses intact and symmetrical Normal gait and station, No calf tenderness Neuro: Muscles Strength 5/5 in all 4 extremities, Sensation to light touch grossly present throughout, Cranial nerves II-XII grossly intact. No focal sensory deficits Assessment CODE BLUE GI bleed Symptomatic anemia Hypotension Syncope Plan (To transfer patient to the ICU for closer monitoring, repeat hemoglobin at 6.3 indicating approximately 3 g drop we'll transfuse 3 units of packed RBCs immediately. Continue IV PPI therapy, Continue IV fluids. We'll notify GI patient status. Continue to monitor closely in the ICU.
[2019-01-04 07:36] LABS: Anion Gap 2 mmol/L; Blood Urea Nitrogen 33 mg/dL (7-17); Calcium 9.4 mg/dL (8.4-10.2); Carbon Dioxide 26 mmol/L (22-30); Chloride 112 mmol/L (98-107); Glucose 98 mg/dL (74-99); Phosphorus 2.7 mg/dL (2.5-4.5); Potassium 4.9 mmol/L (3.5-5.1); Sodium 140 mmol/L (137-145)
[2019-01-04 07:37] LABS: Basophils % (A) 1 %; Eosinophils # (A) 0.1 k/uL (0-0.7); Eosinophils % (A) 2 %; HCT 29.5 % (34.0-46.0); Lymphocytes # (A) 1.6 k/uL (1.0-4.8); Lymphocytes % (A) 25 %; MCHC 31.9 g/dL (31.0-37.0); MCV 87.8 fL (80.0-100.0); Mean Platelet Volume 6.4; Monocytes # (A) 0.4 k/uL (0-1.0); Monocytes % (A) 6 %; Neutrophils # (A) 4.3 k/uL (1.3-7.7); Neutrophils % (A) 65 %; Platelet Count 201 k/uL (150-450); RBC 3.36 m/uL (3.80-5.40); RDW 14.2 % (11.5-15.5); WBC 6.6 k/uL (3.8-10.6)
[2019-01-04 07:42] LABS: HGB 9.4 gm/dL (11.4-16.0)
[2019-01-04] MEDS ORDERED: LIDOCAINE 1% INJ 10MG/ML (20 ML MDV) ONE (09:23)
[2019-01-04] MEDS ORDERED: PROPOFOL 10 MG/ML 20 ML VIAL IV ONE (09:23)
[2019-01-04] MEDS ORDERED: IV FLUID CONTINUATION 300 ML IV ONE (09:27)
[2019-01-04] MEDS ORDERED: EPINEPHrine 10 ML SYRINGE (0.1 MG/ML) MISCELLANE ONE (09:45)
--- NOTE | 2019-01-04 10:02 | P.PCN ---
Date of Procedure: 01/04/19 Description of Procedure: BRIEF HISTORY: The patient is a very pleasant 68-year-old with a medical history significant for hypertension, hyperlipidemia who presents after a near syncopal episode. The patient reports that she has been using ibuprofen around the clock for the past 2 weeks and the treatment of a headache. She presented to the hospital after having an episode of near syncope where she felt as though she was going to collapse and was called by her who witnessed the episode. She reports black bowel movements yesterday prior to presentation. She denies any gross rectal bleeding. No prior history of GI bleeding. No nausea, vomiting, hematemesis or coffee-ground emesis reported. On presentation to the hospital the patient was found to have a hemoglobin of 10.7 which trended to 9.2. Stool testing was positive for occult blood. Patient was in her room last night when she had another near syncopal episode and a CODE BLUE was called. She was transferred to the unit where she was noted to have passage of blood and clots per rectum. Further fall in hemoglobin was noted as the patient was found to have a hemoglobin of 6.3. She was subsequently transfused 3 units of hemoglobin and blood count was found to be 9.4 this morning. PROCEDURE PERFORMED: Esophagogastroduodenoscopy with epinephrine injection and clipping. PREOPERATIVE DIAGNOSIS: Anemia of acute blood loss, melena, hematochezia. ESTIMATED BLOOD LOSS: Minimal. IV sedation per anesthesia. PROCEDURE: After informed consent was obtained, the patient was brought into the endoscopy unit. IV sedation was administered by Anesthesia under continuous monitoring. Initially the Olympus GIF-149 video endoscope was inserted into the mouth. Esophagus intubated without any difficulty. It was gradually advanced into the stomach and duodenum and carefully examined. The bulb and the second part of the duodenum appeared normal. The scope at this time was withdrawn to the stomach, adequately insufflated with air, and upon careful examination, mucosa of the antrum, body, cardia and the fundus were significant for a large amount of old retained blood. Copious lavage of the entire stomach was performed and an antral ulcer in the prepyloric region was found. Oozing of blood from the ulcer was noted. 5 mL of epinephrine were injected circumferentially around the ulcer with hemostasis achieved. 2 clips were then placed in the ulcer. No bleeding was noted at the completion of the intervention.. The scope was then withdrawn into the esophagus. The GE junction was located at 39 cm from the incisors. The esophagus appeared normal. There were no erosions or ulcerations seen and the patient tolerated the procedure well. IMPRESSION: 1. Antral ulcer actively oozing blood, treated with 5 mL of epinephrine injection and placement of 2 clips with hemostasis achieved. 2. Old blood noted in the entire stomach with copious lavage and suction it was removed. RECOMMENDATIONS: The findings of this examination were discussed with the patient and her . Would keep the patient nothing by mouth except for ice chips and sips of water with meds. Continue Protonix IV twice a day. Continue to monitor hemoglobin and hematocrit and transfuse as needed. If hemodynamically stable with stable hemoglobin and no further symptoms can advance to liquid diet tonight. If further bleeding will consider repeat upper endoscopy, however if further signs or symptoms of bleeding developed surgery service should be consulted in case definitive surgical intervention is required.
--- NOTE | 2019-01-04 10:39 | P.CNPUL ---
History of Present Illness Consult date: 01/04/19 Chief complaint: Acute upper GI bleeding History of present illness: This is a 68-year-old female patient who was transferred to the intensive care unit because of an active GI bleeding. The patient has a new syncopal episode. She is known to have hypertension and hyperlipidemia. She has been taking ibuprofen around the clock for the past 2 weeks for treatment of a headache. She presented emergency department with near syncope and generalized weakness and dizziness. She felt that she was going to collapse and she was having black tarry bowel movements prior to her presentation. She denies having any gross rectal bleeding. No history of any previous GI bleeding. Nausea. No vomiting. No hematemesis. No coffee-ground emesis. The patient came in with a hemoglobin of 10.7 and then hemoglobin trended down to 9.2 and later on down to 6.3. She was initially admitted to the medical floor and then she had another syncopal episode and she got transferred to the ICU. The patient received IV fluids received a total of 3 units of blood. She had a positive blood. He subsequently brought up her hemoglobin up to 9.4 after 2 units of packed RBC. EGD was done earlier this morning. The patient was found to have a large antral ulcer and ulcer was injected with epinephrine and was clipped with adequate hemostasis being achieved. Old blood noted in the entire stomach with copious amount of lavage and suctioning was done during the procedure. Currently the patient is nothing by mouth pH is back to the ICU. He is on IV Protonix. Her coags are fine and they're within normal limits. Blood pressures within normal. No sinus tachycardia. She is awake and alert. She is producing adequate amount of urine output. No history of alcoholism. No chronic liver disease. Has The abdomen was also done and showed diverticulosis. No other acute abnormalities noted. Review of Systems Constitutional: Reports chronic headaches, Reports weakness Eyes: denies as per HPI, denies blurred vision, denies bulging eye, denies decreased vision, denies diplopia, denies discharge, denies dry eye, denies irritation, denies itching, denies pain, denies photophobia, denies loss of peripheral vision, denies loss of vision, denies tunnel vision/blind spots Ears: deny: decreased hearing, ear discharge, earache, tinnitus Ears, nose, mouth and throat: Denies headache, Denies sore throat Breasts: absent: as per HPI, change in shape, gynecomastia, masses, nipple discharge, pain, skin changes, swelling Cardiovascular: Denies chest pain, Denies shortness of breath Respiratory: Reports as per HPI Gastrointestinal: Reports as per HPI, Reports melena Genitourinary: Denies dysuria, Denies hematuria Menstruation: Reports as per HPI Musculoskeletal: Reports as per HPI Musculoskeletal: absent: ankle pain, ankle stiffness, ankle swelling, as per HPI, elbow pain, elbow stiffness, elbow swelling, foot pain, foot stiffness, f oot swelling, hand pain, hand stiffness, hand swelling, hip pain, hip stiffness, hip swelling, knee pain, knee stiffness, knee swelling, shoulder pain, shoulder stiffness, shoulder swelling, wrist pain, wrist stiffness, wrist swelling Integumentary: Denies pruritus, Denies rash Neurological: Reports headaches, Reports syncope, Reports weakness Psychiatric: Reports as per HPI Endocrine: Reports as per HPI Hematologic/Lymphatic: Reports as per HPI Allergic/Immunologic: Reports as per HPI Past Medical History Past Medical History: Hyperlipidemia, Hypertension History of Any Multi-Drug Resistant Organisms: None Reported Past Surgical History: Back Surgery, Joint Replacement, Tubal Ligation Past Psychological History: No Psychological Hx Reported Smoking Status: Former smoker Past Alcohol Use History: Occasional Past Drug Use History: None Reported Medications and Allergies Home Medications Medication Instructions Recorded Confirmed Type ALPRAZolam [Xanax] 0.5 mg PO DAILY PRN 01/02/19 01/02/19 History Ascorbic Acid [Vitamin C] 500 mg PO DAILY 01/02/19 01/02/19 History Aspirin [E[place] Aspirin EC] 81 mg PO DAILY 01/02/19 01/02/19 History Cholecalciferol [Vitamin D3] 1,000 unit PO DAILY 01/02/19 01/02/19 History Glucosamine Sulfate 500 mg PO BID 01/02/19 01/02/19 History Irbesartan 300 mg PO DAILY 01/02/19 01/02/19 History Multivitamins, Thera [Multivitamin 1 tab PO DAILY 01/02/19 01/02/19 History (formulary)] Pravastatin Sodium [Pravachol] 20 mg PO DAILY 01/02/19 01/02/19 History Selenium 100 mcg PO DAILY 01/02/19 01/02/19 History Vitamin E 1,000 unit PO DAILY 01/02/19 01/02/19 History Allergies Allergy/AdvReac Type Severity Reaction Status Date / Time Sulfa (Sulfonamide Allergy Rash/Hives Verified 01/02/19 23:04 Antibiotics) Physical Exam Vitals: Vital Signs Temp Pulse Pulse Pulse Resp BP BP 01/04/19 08:00 97.8 F 77 16 113/64 01/04/19 07:00 74 24 115/64 01/04/19 06:14 98.1 F 74 20 115/69 01/04/19 06:00 71 22 125/63 01/04/19 05:29 98.5 F 71 70 H 115/65 01/04/19 05:00 73 17 98/69 01/04/19 04:59 98.2 F 71 20 112/68 01/04/19 04:49 98.3 F 77 18 98/69 01/04/19 04:31 98.2 F 16 121/75 01/04/19 04:00 98.0 F 76 24 103/62 01/04/19 03:43 98.1 F 78 21 103/62 01/04/19 03:13 98.1 F 76 22 96/58 01/04/19 03:03 97.9 F 80 21 96/58 01/04/19 03:00 80 25 H 106/60 01/04/19 02:49 98.1 F 79 24 111/62 01/04/19 02:47 98.0 F 82 22 106/60 01/04/19 02:00 85 22 106/58 01/04/19 01:52 98.4 F 82 20 106/60 01/04/19 01:22 98.1 F 91 22 94/60 01/04/19 01:15 94 21 112/57 01/04/19 01:12 98.2 F 97 18 112/57 01/04/19 01:00 93 13 119/58 01/04/19 00:30 96 19 115/51 01/04/19 00:00 97.7 F 95 19 109/55 01/03/19 23:09 95 18 01/03/19 23:04 94 18 01/03/19 23:02 93 18 01/03/19 22:59 97 18 01/03/19 21:14 98.3 F 83 17 01/03/19 15:00 98.3 F 78 16 146/83 BP Pulse Ox 01/04/19 08:00 01/04/19 07:00 100 01/04/19 06:14 100 01/04/19 06:00 100 01/04/19 05:29 100 01/04/19 05:00 99 01/04/19 04:59 99 01/04/19 04:49 99 01/04/19 04:31 98 01/04/19 04:00 98 01/04/19 03:43 98 01/04/19 03:13 99 01/04/19 03:03 98 01/04/19 03:00 97 01/04/19 02:49 98 01/04/19 02:47 98 01/04/19 02:00 97 01/04/19 01:52 98 01/04/19 01:22 99 01/04/19 01:15 99 01/04/19 01:12 01/04/19 01:00 97 01/04/19 00:30 97 01/04/19 00:00 98 01/03/19 23:09 96/65 97 01/03/19 23:04 97/64 97 01/03/19 23:02 86/55 01/03/19 22:59 92/66 98 01/03/19 21:14 124/75 96 01/03/19 15:00 97 Intake and Output 01/03/19 01/04/19 01/04/19 22:59 06:59 14:59 Intake Total 1290 320 Output Total 300 Balance 990 320 Intake: IV 360 260 Sodium Chloride 0.9% 1, 360 60 000 ml @ 60 mls/hr IV . [id number] TENA Rx#:[id number] Intake, IV Titration 60 Amount Sodium Chloride 0.9% 1, 60 000 ml @ 60 mls/hr IV . [id number] [facility], [facility] Rx#:[id number] Blood Product 930 Rc As-1 Unit 310 [id number] Rc As-1 Unit 310 [id number] Rc As-1 Unit 310 [id number] Output: Urine 300 Other: Voiding Method Bedpan # Voids 0 1 # Bowel Movements 1 # Emeses 1 Weight 111 kg The patient appeared well nourished and normally developed. Vital signs as documented. Head exam is unremarkable. No scleral icterus or corneal arcus no geo. Neck is without jugular venous distension, thyromegaly, or carotid bruits. Carotid upstrokes are brisk bilaterally. Lungs are clear to auscultation and percussion. Cardiac exam reveals the PMI to be normally sized and situated. Rhythm is regular. First and second heart sounds normal. No murmurs, rubs or gallops. Abdominal exam reveals normal bowel sounds, no masses, no organomegaly and no aortic enlargement. Extremities are nonedematous and both femoral and pedal pulses are normal. Neurologically the patient is awake and alert there is no focal logical deficits.Examination of the skin revealed no evidence of significant rashes, suspicious appearing nevi or other concerning lesions. Results - Laboratory Findings CBC and BMP: 01/04/19 07:13 01/04/19 07:13 PT/INR, D-dimer PT 10.9 sec (9.0-12.0) 01/03/19 23:27 INR 1.0 (<1.2) 01/03/19 23:27 Abnormal lab findings: Abnormal Labs 01/02/19 01/02/19 01/03/19 22:42 22:42 01:05 RBC Hgb 10.7 L Hct 33.0 L MCHC Chloride BUN 37 H Glucose 120 H POC Glucose (mg/dL) Calcium 10.3 H Total Protein 6.1 L Albumin 3.3 L Ur Leukocyte Esterase Urine Bacteria Hyaline Casts Urine Mucus Stool Occult Blood Positive H Crossmatch 01/03/19 01/03/19 01/03/19 02:00 06:59 14:09 RBC 3.31 L 3.36 L Hgb 9.2 L D 9.4 L Hct 28.9 L 29.4 L MCHC Chloride BUN Glucose POC Glucose (mg/dL) Calcium Total Protein Albumin Ur Leukocyte Esterase Small H Urine Bacteria Rare H Hyaline Casts 3 H Urine Mucus Rare H Stool Occult Blood Crossmatch 01/03/19 01/03/19 01/03/19 23:27 23:27 23:43 RBC 2.37 L Hgb 6.3 L* D Hct 20.9 L MCHC 30.1 L Chloride BUN Glucose POC Glucose (mg/dL) 125 H Calcium Total Protein Albumin Ur Leukocyte Esterase Urine Bacteria Hyaline Casts Urine Mucus Stool Occult Blood Crossmatch See Detail 01/04/19 01/04/19 07:13 07:13 RBC 3.36 L Hgb 9.4 L D Hct 29.5 L MCHC Chloride 112 H BUN 33 H Glucose POC Glucose (mg/dL) Calcium Total Protein Albumin Ur Leukocyte Esterase Urine Bacteria Hyaline Casts Urine Mucus Stool Occult Blood Crossmatch - Diagnostic Findings Chest x-ray: image reviewed Assessment and Plan Plan: Assessment 1 acute upper GI bleeding secondary to a bleeding antral ulcer of the stomach and the patient had EGD with adequate intervention including epinephrine injection and clipping and the bleeding has been controlled for now the patient is currently on IV Protonix. This is most likely an NSAID-induced gastric ulcer that was being taken for chronic headaches 2 acute blood loss anemia, hemoglobin is low at 6.2 and the patient received a total of 3 units of packed RBC and hemoglobin is above 9 3 presyncope secondary to intravascular volume depletion and blood loss 4 chronic headaches 5 hypertension 6 hyperlipidemia 7 Colonic diverticulosis Plan Patient is doing well. She is conversing. She is hemodynamically stable for now. She'll be monitored in ICU for another 24 hours. We'll obtain hemoglobin every 4 hours. Continue IV Protonix. We'll continue to follow. Was advised not to take any form of nonsteroidal anti-inflammatory medication. We'll look for alternatives. Ultram has been started for headaches. We'll continue to follow.
[2019-01-04] MEDS ORDERED: traMADol 50 MG TAB PO PRN (11:02)
--- NOTE | 2019-01-04 11:06 | P.PN ---
Subjective Progress Note Date: 01/04/19 (delayed charting seen at 0900) Principal diagnosis: GI bleed Patient is a 68-year-old female with a past medical history of hypertension, dyslipidemia, and prior tobacco abuse presented to the ER with complaints of dizziness and black stools. In the ER she underwent an extensive evaluation. Her stools noted to be fecal occult blood positive, CBC showed hemoglobin 10.7, platelets 272. EKG was done which showed normal sinus rhythm in her troponin was negative. KUB showed a nonspecific bowel gas pattern with no definitive obstruction. She was admitted for further monitoring and care. Her CBC was trended and remained stable. GI was consulted and recommended EGD. She was started on Protonix IV push twice daily. On the evening of 01/03 she was on the toilet having a bowel movement and began vomiting. She felt faint and diaphoretic. She then had a syncopal episode. There was some concerns for V. tach however on review of the telemetry strips there is some artifact but no definitive ventricular tachycardia. She was subsequently moved to the ICU for further monitoring. Her CBGs have acute drop in hemoglobin with a hemoglobin of 6.3. She was subsequently transfused 3 units of packed red blood cells. Repeat hemoglobin was back up to 9. She underwent an EGD and morning of 01/04 which showed an actively bleeding ulcer. Patient seen and examined at bedside in ICU. She denies any chest pain, shortness breath, nausea, vomiting, or abdominal pain. She relates the events as described above. All questions answered. I assured her that there was no signs of ventricular tachycardia on her telemetry monitoring. We discussed that this is likely a vasovagal event. Objective - Vital Signs Vital signs: Vital Signs Temp 97.8 F 01/04/19 08:00 Pulse 77 01/04/19 08:00 Resp 16 01/04/19 08:00 BP 113/64 01/04/19 08:00 Pulse Ox 100 01/04/19 07:00 Intake & Output 01/03/19 01/04/19 01/04/19 18:59 06:59 18:59 Intake Total 1290 320 Output Total 300 Balance 990 320 Weight 111 kg Intake: IV 360 260 Sodium Chloride 0.9% 1, 360 60 000 ml @ 60 mls/hr IV . [id number] [facility] Rx#:[id number] Intake, IV Titration 60 Amount Sodium Chloride 0.9% 1, 60 000 ml @ 60 mls/hr IV . [id number] [facility] Rx#:[id number] Blood Product 930 Rc As-1 Unit 310 [id number] Rc As-1 Unit 310 [id number] Rc As-1 Unit 310 [id number] Output: Urine 300 Other: Voiding Method Bedpan # Voids 2 0 1 # Bowel Movements 1 1 # Emeses 1 - Exam General: ill appearing, no distress, appears at stated age Derm: warm, dry Head: atraumatic, normocephalic, symmetric Eyes: EOMI, no lid lag, anicteric sclera Mouth: no lip lesion, mucus membranes moist Cardiovascular: S1S2 reg, no murmur, positive posterior tibial pulse bilateral, Lungs: decreased bs bilateral, no rhonchi, no rales , no accessory muscle use Abdominal: soft, nontender to palpation, no guarding, no appreciable organomegaly Ext: no gross muscle atrophy, no edema, no contractures Neuro: CN II-XI grossly intact, no focal neuro deficits Psych: Alert, oriented, appropriate affect - Labs CBC & Chem 7: 01/04/19 07:13 01/04/19 07:13 Labs: Abnormal Lab Results - Last 24 Hours (Table) 01/03/19 01/03/19 01/03/19 Range/Units 14:09 23:27 23:27 RBC 3.36 L 2.37 L (3.80-5.40) m/uL Hgb 9.4 L 6.3 L* D (11.4-16.0) gm/dL Hct 29.4 L 20.9 L (34.0-46.0) % MCHC 30.1 L (31.0-37.0) g/dL Chloride (98-107) mmol/L BUN (7-17) mg/dL POC Glucose (mg/dL) (75-99) mg/dL Crossmatch See Detail 01/03/19 01/04/19 01/04/19 Range/Units 23:43 07:13 07:13 RBC 3.36 L (3.80-5.40) m/uL Hgb 9.4 L D (11.4-16.0) gm/dL Hct 29.5 L (34.0-46.0) % MCHC (31.0-37.0) g/dL Chloride 112 H (98-107) mmol/L BUN 33 H (7-17) mg/dL POC Glucose (mg/dL) 125 H (75-99) mg/dL Crossmatch Assessment and Plan Assessment: GI bleed secondary to bleeding gastric ulcer with acute blood loss anemia - Continue with IV PPI - GI recs - Avoid NSAIDS, ASA on hold Vasovagal syncope -Continue to follow telemetry, reviewed and no evidence of V tach -Check echocardiogram in a.m. -Check orthostatic vitals as needed if patient feels faint Headache, Chronic - ultram, tylenol ineffective - further outpatient evaluation HTN, controlled - cozaar - folloe BP HLD - pravachol Morbid obesity with BMI 40.7 - Structured outpatient weight loss DVT prophylaxis: If HGB remins stable then down grade to selective later today Discussed with: Patient, nursing, Dr. Shen Anticipated discharge: [address]: home A total of 25 minutes was spent on the care of this complex patient more than 50% of the time was spent in counseling and care coordination.
[2019-01-04] MEDS: LOSARTAN 50 MG TAB PO SCH (11:17)
[2019-01-04] MEDS: PANTOPRAZOLE 40 MG/10 ML VIAL IVP SCH ×2 (12:54→20:44)
[2019-01-04] MEDS: SODIUM CHLORIDE 0.9% 1,000 ML IV SCH (12:54)
[2019-01-04 17:11] LABS: HGB 9.6 gm/dL (11.4-16.0); Hypochromasia Slight; MCH 28.7 pg (25.0-35.0); MCHC 33.1 g/dL (31.0-37.0); MCV 86.7 fL (80.0-100.0); Mean Platelet Volume 7.1; Platelet Count 218 k/uL (150-450); RBC 3.34 m/uL (3.80-5.40); RDW 14.7 % (11.5-15.5)
[2019-01-04] MEDS: PRAVASTATIN SODIUM 20 MG TAB PO SCH (20:44)
[2019-01-05] MEDS: ACETAMINOPHEN TAB 325 MG TAB PO PRN ×3 (05:06→19:19)
[2019-01-05 06:06] LABS: Basophils % (A) 1 %; Eosinophils # (A) 0.1 k/uL (0-0.7); Eosinophils % (A) 2 %; HCT 28.2 % (34.0-46.0); HGB 8.8 gm/dL (11.4-16.0); Lymphocytes # (A) 1.6 k/uL (1.0-4.8); Lymphocytes % (A) 23 %; MCH 27.2 pg (25.0-35.0); MCHC 31.1 g/dL (31.0-37.0); MCV 87.4 fL (80.0-100.0); Mean Platelet Volume 6.7; Monocytes # (A) 0.4 k/uL (0-1.0); Monocytes % (A) 6 %; Neutrophils # (A) 4.6 k/uL (1.3-7.7); Neutrophils % (A) 68 %; Platelet Count 198 k/uL (150-450); RBC 3.22 m/uL (3.80-5.40); RDW 14.7 % (11.5-15.5); WBC 6.8 k/uL (3.8-10.6)
[2019-01-05 06:21] LABS: Anion Gap 3 mmol/L; Blood Urea Nitrogen 15 mg/dL (7-17); Carbon Dioxide 26 mmol/L (22-30); Chloride 107 mmol/L (98-107); Glucose 94 mg/dL (74-99); Magnesium 1.9 mg/dL (1.6-2.3); Potassium 4.5 mmol/L (3.5-5.1); Sodium 136 mmol/L (137-145)
[2019-01-05] MEDS ORDERED: Magnesium Replacement Protocol 1 EACH MISC MISCELLANE PRN (06:37)
[2019-01-05] MEDS: LOSARTAN 50 MG TAB PO SCH (09:20)
[2019-01-05] MEDS: PANTOPRAZOLE 40 MG/10 ML VIAL IVP SCH (09:20)
[2019-01-05] MEDS: MAGNESIUM SULFATE-D5W PMX 1 GM in DEXTROSE/WATER 1 100ML.BAG IVPB SCH ×2 (09:20→11:31)
--- NOTE | 2019-01-05 11:24 | ECHOF ---
Referral Reason:syncope MEASUREMENTS -------- HEIGHT: 165.1 cm WEIGHT: 110.7 kg BP: 111/54 RVIDd: 2.6 cm (< 3.3) IVSd: 1.5 cm (0.6 - 1.1) LVIDd: 4.4 cm (3.9 - 5.3) LVPWd: 1.4 cm (0.6 - 1.1) IVSs: 1.8 cm LVIDs: 3.2 cm LVPWs: 1.9 cm LA Diam: 3.3 cm (2.7 - 3.8) LAESV Index (A-L): 31.91 ml/m Ao Diam: 3.3 cm (2.0 - 3.7) AV Cusp: 2.2 cm (1.5 - 2.6) MV EXCURSION: 13.991 mm (> 18.000) MV EF SLOPE: 53 mm/s (70 - 150) EPSS: 0.4 cm MV E Hasmukh: 0.76 m/s MV DecT: 249 ms MV A Hasmukh: 1.01 m/s MV E/A Ratio: 0.75 AV maxP.00 mmHg AV meanP.35 mmHg RAP: 5.00 mmHg RVSP: 28.54 mmHg FINDINGS -------- Sinus rhythm. This was a technically good study. The left ventricular size is normal. There is moderate concentric left ventricular hypertrophy. O verall left ventricular systolic function is normal with, an EF between 60 - 65 %. The right ventricle is normal in size. LA is midly dilated 29-33ml/m2. The right atrium is normal in size. The aortic valve is trileaflet and appears structurally normal. There is mild aortic stenosis prese nt. Peak/mean gradient across the Aortic Valve is 16.00mmHg / 8.35mmHg. There is trace to mild mitral regurgitation. Mild tricuspid regurgitation present. Right ventricular systolic pressure is normal at < 35 mmHg. Trace/mild (physiologic) pulmonic regurgitation. The aortic root size is normal. Normal inferior vena cava with normal inspiratory collapse consistent with estimated right atrial pre ssure of 5 mmHg. There is no pericardial effusion. CONCLUSIONS -------- 1. Sinus rhythm. 2. This was a technically good study. 3. The left ventricular size is normal. 4. There is moderate concentric left ventricular hypertrophy. 5. Overall left ventricular systolic function is normal with, an EF between 60 - 65 %. 6. The right ventricle is normal in size. 7. LA is midly dilated 29-33ml/m2. 8. The right atrium is normal in size. 9. The aortic valve is trileaflet and appears structurally normal. 10. There is mild aortic stenosis present. 11. Peak/mean gradient across the Aortic Valve is 16.00mmHg / 8.35mmHg. 12. There is trace to mild mitral regurgitation. 13. Mild tricuspid regurgitation present. 14. Right ventricular systolic pressure is normal at < 35 mmHg. 15. Trace/mild (physiologic) pulmonic regurgitation. 16. The aortic root size is normal. 17. Normal inferior vena cava with normal inspiratory collapse consistent with estimated right atrial pressure of 5 mmHg. 18. There is no pericardial effusion. SURVEYOR ROD HELPER: Ariadne Villaseñor RDCS
--- NOTE | 2019-01-05 13:05 | P.PN ---
Subjective Progress Note Date: 01/05/19 Principal diagnosis: Acute upper GI bleeding secondary to antral ulcer This is a 68-year-old female patient who was transferred to the intensive care unit because of an active GI bleeding. The patient has a new syncopal episode. She is known to have hypertension and hyperlipidemia. She has been taking ibuprofen around the clock for the past 2 weeks for treatment of a headache. She presented emergency department with near syncope and generalized weakness and dizziness. She felt that she was going to collapse and she was having black tarry bowel movements prior to her presentation. She denies having any gross rectal bleeding. No history of any previous GI bleeding. Nausea. No vomiting. No hematemesis. No coffee-ground emesis. The patient came in with a hemoglo bin of 10.7 and then hemoglobin trended down to 9.2 and later on down to 6.3. She was initially admitted to the medical floor and then she had another syncopal episode and she got transferred to the ICU. The patient received IV fluids received a total of 3 units of blood. She had a positive blood. He subsequently brought up her hemoglobin up to 9.4 after 2 units of packed RBC. EGD was done earlier this morning. The patient was found to have a large antral ulcer and ulcer was injected with epinephrine and was clipped with adequate hemostasis being achieved. Old blood noted in the entire stomach with copious amount of lavage and suctioning was done during the procedure. Currently the p atient is nothing by mouth pH is back to the ICU. He is on IV Protonix. Her coags are fine and they're within normal limits. Blood pressures within normal. No sinus tachycardia. She is awake and alert. She is producing adequate amount of urine output. No history of alcoholism. No chronic liver disease. Has The abdomen was also done and showed diverticulosis. No other acute abnormalities noted. Patient was reevaluated today on 01/05/2019, remains in the ICU, hemodynamically stable, received a total of 3 units of packed RBCs since admission. Patient is asymptomatic, no evidence of active bleeding clinically at this point. She is hemodynamically stable. Hemoglobin today was 8.8 electrolytes are normal renal profile is normal. Hence I will make arrangements for the patient be tr ansferred out of the ICU to a regular medical floor. Objective - Vital Signs Vital signs: Vital Signs Temp 98.5 F 01/05/19 08:00 Pulse 69 03/25/19 10:00 Resp 28 H 01/05/19 10:00 BP 121/79 01/05/19 10:00 Pulse Ox 93 L 01/05/19 10:00 Intake & Output 01/04/19 01/05/19 01/05/19 18:59 06:59 18:59 Intake Total 1000 820 320 Output Total 0 600 Balance 1000 820 -280 Weight 114.1 kg Intake: IV 680 720 320 Magnesium Sulfate-D5w Pmx 200 1 gm In Dextrose/Water 1 100ml.bag @ 100 mls/hr IVPB Q1H [facility] Rx#: [id number] Sodium Chloride 0.9% 1, 480 720 120 000 ml @ 60 mls/hr IV . [id number] [facility] Rx#:[id number] Intake, IV Titration 120 Amount Sodium Chloride 0.9% 1, 120 000 ml @ 60 mls/hr IV . [id number] [facility] Rx#:[id number] Oral 200 100 Output: Urine 0 600 Other: Voiding Method Toilet Toilet Toilet # Voids 1 1 1 # Bowel Movements 2 - Exam General: Revealed a 68-year-old female in no distress Skin: warm, dry, good skin turgor. Head: atraumatic, normocephalic, Eyes: EOMI, no lid lag, anicteric sclera, PERRLA, EOMI. Mouth: Moist mucous membranes, otherwise unremarkable. Cardiovascular: S1S2 reg, no murmur, positive posterior tibial pulse bilateral, Lungs: Clear throughout, no crackles or rhonchi or wheezes, symmetrical chest expansion. No chest wall tenderness. Abdominal: soft, nontender to palpation, no guarding, no appreciable organomegaly Ext: no gross muscle atrophy, no edema, no contractures Neuro: CN II-XI grossly intact, no focal neuro deficits Psych: Normal mood, affect and mental status examination - Labs CBC & Chem 7: 01/05/19 05:02 01/05/19 05:02 Labs: Abnormal Lab Results - Last 24 Hours (Table) 01/04/19 01/05/19 01/05/19 Range/Units 16:56 05:02 05:02 RBC 3.34 L 3.22 L (3.80-5.40) m/uL Hgb 9.6 L 8.8 L (11.4-16.0) gm/dL Hct 29.0 L 28.2 L (34.0-46.0) % Sodium 136 L (137-145) mmol/L Assessment and Plan Assessment: Impression: Acute upper GI bleeding secondary to antral ulcer status post epinephrine injection and clipping. Patient has no evidence of active bleeding at present. This is felt to be likely related to nonsteroidal anti-inflammatory drugs. 2. Syncope secondary to intravascular volume depletion, improved, patient received a total of 3 units of packed RBCs since her GI bleeding. 3 history of hypertension 4 chronic headaches 5 history of diverticulosis 6 acute blood loss anemia required a total of 3 units of packed RBCs. Recommendation: Patient is presently in the ICU, however considering the patient is hemodynamically stable, and no clinical evidence of GI bleeding, I would recommend that we transfer the patient out of the ICU to a medical floor, continue present medications including Protonix 40 mg IV push twice a day, Avoid nonsteroidal anti-inflammatory drugs, continue blood pressure meds as listed, continue statins for her history of hypercholesterolemia, will continue to follow. Time with Patient: Less than 30
[2019-01-05] MEDS: SODIUM CHLORIDE 0.9% 1,000 ML IV SCH (13:35)
--- NOTE | 2019-01-05 18:34 | P.PN ---
Subjective Progress Note Date: 01/05/19 Principal diagnosis: GI bleed Patient is a 68-year-old female with a past medical history of hypertension, dyslipidemia, and prior tobacco abuse presented to the ER with complaints of dizziness and black stools. In the ER she underwent an extensive evaluation. Her stools noted to be fecal occult blood positive, CBC showed hemoglobin 10.7, platelets 272. EKG was done which showed normal sinus rhythm in her troponin was negative. KUB showed a nonspecific bowel gas pattern with no definitive obstruction. She was admitted for further monitoring and care. Her CBC was trended and remained stable. GI was consulted and recommended EGD. She was started on Protonix IV push twice daily. On the evening of 01/03 she was on the toilet having a bowel movement and began vomiting. She felt faint and diaphoretic. She then had a syncopal episode. There was some concerns for V. tach however on review of the telemetry strips there is some artifact but no definitive ventricular tachycardia. She was subsequently moved to the ICU for further monitoring. Her CBGs have acute drop in hemoglobin with a hemoglobin of 6.3. She was subsequently transfused 3 units of packed red blood cells. Repeat hemoglobin was back up to 9. She underwent an EGD and morning of 01/04 which showed an actively bleeding ulcer. Hemoglobin remained stable overnight on 01/04. Patient seen and examined at bedside in ICU. Feeling well no chest pain, shortness breath, nausea, vomiting, or abdominal pain. No additional bowel movements overnight. Feeling hungry and wants to eat. All questions answered. Objective - Vital Signs Vital signs: Vital Signs Temp 98.5 F 01/05/19 08:00 Pulse 75 01/05/19 09:00 Resp 30 H 01/05/19 09:00 BP 118/74 01/05/19 09:00 Pulse Ox 92 L 01/05/19 08:00 Intake & Output 01/04/19 01/05/19 01/05/19 18:59 06:59 18:59 Intake Total 1000 820 240 Output Total 0 600 Balance 1000 820 -360 Weight 114.1 kg Intake: IV 680 720 240 Sodium Chloride 0.9% 1, 480 720 240 000 ml @ 60 mls/hr IV . [id number] [facility] Rx#:[id number] Intake, IV Titration 120 Amount Sodium Chloride 0.9% 1, 120 000 ml @ 60 mls/hr IV . [id number] [facility] Rx#:[id number] Oral 200 100 Output: Urine 0 600 Other: Voiding Method Toilet Toilet # Voids 1 1 1 # Bowel Movements 2 - Exam General: ill appearing, no distress, appears at stated age Derm: warm, dry Head: atraumatic, normocephalic, symmetric Eyes: EOMI, no lid lag, anicteric sclera Mouth: no lip lesion, mucus membranes moist Cardiovascular: S1S2 reg, no murmur, positive posterior tibial pulse bilateral, Lungs: CTA bilateral, no rhonchi, no rales , no accessory muscle use Abdominal: soft, nontender to palpation, no guarding, no appreciable organomegaly Ext: no gross muscle atrophy, trace edema, no contractures Neuro: CN II-XI grossly intact, no focal neuro deficits Psych: Alert, oriented, appropriate affect - Labs CBC & Chem 7: 01/05/19 05:02 01/05/19 05:02 Labs: Abnormal Lab Results - Last 24 Hours (Table) 01/04/19 01/05/19 01/05/19 Range/Units 16:56 05:02 05:02 RBC 3.34 L 3.22 L (3.80-5.40) m/uL Hgb 9.6 L 8.8 L (11.4-16.0) gm/dL Hct 29.0 L 28.2 L (34.0-46.0) % Sodium 136 L (137-145) mmol/L Assessment and Plan Assessment: GI bleed secondary to bleeding gastric ulcer with acute blood loss anemia - Changes in to by mouth PPI and advance diet - GI recs - Avoid NSAIDS, ASA on hold Vasovagal syncope -Continue to follow telemetry, reviewed and no evidence of V tach -Echocardiogram normal -Check orthostatic vitals as needed if patient feels faint Headache, Chronic - ultram, tylenol ineffective - further outpatient evaluation HTN, controlled - cozaar - follow BP HLD - pravachol Morbid obesity with BMI 40.7 - Structured outpatient weight loss Transfer to selective DVT prophylaxis: SCDs Discussed with: Patient, nursing, Dr. Shen Anticipated discharge: [address]: home A total of 25 minutes was spent on the care of this complex patient more than 50% of the time was spent in counseling and care coordination.
--- NOTE | 2019-01-05 20:22 | P.PN ---
Subjective Progress Note Date: 01/05/19 Principal diagnosis: Acute blood loss anemia, upper GI bleed Patient seen lying in bed today. She is comfortable. Tolerating liquids and asking for diet. Advance. No abdominal pain. No bowel movements reported. Objective - Vital Signs Vital signs: Vital Signs Temp 98 F 01/05/19 14:56 Pulse 72 01/05/19 15:05 Resp 18 01/05/19 15:05 BP 122/72 01/05/19 14:56 Pulse Ox 98 01/05/19 14:56 Intake & Output 01/05/19 01/05/19 01/06/19 06:59 18:59 06:59 Intake Total 820 320 Output Total 0 1200 Balance 820 -880 Weight 114.1 kg Intake: IV 720 320 Magnesium Sulfate-D5w Pmx 200 1 gm In Dextrose/Water 1 100ml.bag @ 100 mls/hr IVPB Q1H [facility] Rx#: [id number] Sodium Chloride 0.9% 1, 720 120 000 ml @ 60 mls/hr IV . [id number] [facility] Rx#:[id number] Oral 100 Output: Urine 0 1200 Other: Voiding Method Toilet Toilet # Voids 1 2 - Exam On physical examination, patient appears comfortable in no apparent distress. HEAD: Normocephalic, atraumatic. EYES: No scleral icterus. No conjunctival injection. MOUTH: No lesions, tongue midline. NECK: Trachea midline, no gross abnormalities. CHEST: Clear to auscultation with no wheezing or rhonchi appreciated. HEART: Regular rate and rhythm. ABDOMEN: Soft, obese. Bowel sounds are positive. No organomegaly. No guarding or rigidity. EXTREMITIES: No pedal edema. SKIN: No rashes, no jaundice. NEUROLOGIC: Alert and oriented x3. No focal deficits. - Labs CBC & Chem 7: 01/05/19 05:02 01/05/19 05:02 Labs: Abnormal Lab Results - Last 24 Hours (Table) 01/05/19 01/05/19 Range/Units 05:02 05:02 RBC 3.22 L (3.80-5.40) m/uL Hgb 8.8 L (11.4-16.0) gm/dL Hct 28.2 L (34.0-46.0) % Sodium 136 L (137-145) mmol/L Assessment and Plan (1) Acute blood loss anemia Narrative/Plan: Patient presenting to the hospital after a near syncope and with reports of melena and stool testing positive for occult blood in the setting of recent NSAID use. Bleeding antral ulcer found on EGD treated with epinephrine injection and clip placement with hemostasis achieved. Current Visit: Yes Status: Acute Code(s): D62 - ACUTE POSTHEMORRHAGIC ANEMIA SNOMED Code(s): 221657698 (2) GI bleed Current Visit: Yes Status: Acute Code(s): K92.2 - GASTROINTESTINAL HEMOR RHAGE, UNSPECIFIED SNOMED Code(s): 46837686 (3) Pre-syncope Current Visit: Yes Status: Acute Code(s): R55 - SYNCOPE AND COLLAPSE SNOMED Code(s): 921859663 Plan: Supportive care Okay for with advancement to soft diet if patient is improved clinically and hemodynamically Continue Protonix twice a day Continue to monitor hemoglobin and hematocrit and transfuse as needed Continue to avoid NSAID use Okay for Tylenol for headaches outpatient follow-up for repeat EGD to be scheduled in 6-8 weeks Thank you for allowing us to participate in the care of the patient we will continue to follow
[2019-01-05] MEDS: PRAVASTATIN SODIUM 20 MG TAB PO SCH (21:21)
[2019-01-05 21:26] VITALS: RESP 16
[2019-01-06] MEDS: ACETAMINOPHEN TAB 325 MG TAB PO PRN ×2 (01:14→07:59)
[2019-01-06 05:46] VITALS: BP 135/77; PULSE 81; TEMP 98.1
[2019-01-06] MEDS ORDERED: PANTOPRAZOLE 40 MG TABLET PO SCH (07:30)
[2019-01-06] MEDS: LOSARTAN 50 MG TAB PO SCH (08:00)
[2019-01-06 08:55] LABS: Basophils % (A) 1 %; Eosinophils # (A) 0.2 k/uL (0-0.7); Eosinophils % (A) 4 %; HCT 27.1 % (34.0-46.0); HGB 8.8 gm/dL (11.4-16.0); Hypochromasia Slight; Lymphocytes # (A) 1.3 k/uL (1.0-4.8); Lymphocytes % (A) 21 %; MCH 28.6 pg (25.0-35.0); MCHC 32.3 g/dL (31.0-37.0); MCV 88.5 fL (80.0-100.0); Mean Platelet Volume 7.2; Monocytes # (A) 0.3 k/uL (0-1.0); Monocytes % (A) 5 %; Neutrophils # (A) 4.1 k/uL (1.3-7.7); Neutrophils % (A) 68 %; Platelet Count 222 k/uL (150-450); RBC 3.07 m/uL (3.80-5.40); RDW 15.2 % (11.5-15.5)
[2019-01-06 09:18] LABS: Anion Gap 3 mmol/L; Blood Urea Nitrogen 12 mg/dL (7-17); Calcium 9.9 mg/dL (8.4-10.2); Carbon Dioxide 30 mmol/L (22-30); Chloride 105 mmol/L (98-107); Glucose 90 mg/dL (74-99); Magnesium 2.1 mg/dL (1.6-2.3); Potassium 4.7 mmol/L (3.5-5.1); Sodium 138 mmol/L (137-145)
--- NOTE | 2019-01-06 09:24 | P.DS ---
Providers Date of admission: 01/03/19 03:50 Expected date of discharge: 01/06/19 Attending physician: Grady Oneil MD Consults: 01/03/19 03:15 Consult Physician Stat Consulting Provider: Sudheer Shen Consult Reason/Comments: GI bleed Do you want consulting provider notified?: Yes 01/03/19 23:11 Consult Physician Stat Consulting Provider: Johnna Gaines Consult Reason/Comments: GIB, syncopal episode Do you want consulting provider notified?: Yes Primary care physician: Jarod Whittaker DO Hospital Course: Discharge Diagnosis: GI bleed secondary to bleeding gastric ulcer Acute blood loss anemia Vasovagal syncope Chronic headaches Hypertension Dyslipidemia Morbid obesity with BMI 40.7 Hospital Course: Patient is a 68-year-old female with a past medical history of hypertension, dyslipidemia, and prior tobacco abuse presented to the ER with complaints of dizziness and black stools. In the ER she underwent an extensive evaluation. Her stools were noted to be fecal occult blood positive, CBC showed hemoglobin 10.7, platelets 272. EKG was done which showed normal sinus rhythm in her troponin was negative. KUB showed a nonspecific bowel gas pattern with no definitive obstruction. She was admitted for further monitoring and care. Her CBC was trended and remained stable. GI was consulted and recommended EGD. She was started on Protonix IV push twice daily. On the evening of 01/03 she was on the toilet having a bowel movement and began vomiting blood. She felt faint and diaphoretic. She then had a syncopal episode. There was some concerns for V. tach however on review of the telemetry strips there is some artifact but no definitive ventricular tachycardia. She was subsequently moved to the ICU for further monitoring. Her CBCs showed an acute drop in hemoglobin with a hemoglobin of 6.3. She was subsequently transfused 3 units of packed red blood cells. Repeat hemoglobin was back up to 9. She underwent an EGD and morning of 01/04 which showed an actively bleeding ulcer treated with injection and clipping. Hemoglobin remained stable after procedure. She had a echo that was unremarkable. She tolerated a soft diet. She was determined stable for discharge home. She will follow with Dr. Shen and have repeat EGD in 6-8 weeks. She will follow with Dr. Whittaker later this week. Patient seen and examined at bedside.No chest pain, SOB, nausea, or vomiting, No BM overnight, feels like she will have a bowel movement soon. Tolerating diet without pain. Vital signs reviewed and stable. General: non toxic, no distress, appears at stated age, obese Derm: warm, dry Head: atraumatic, normocephalic, symmetric Eyes: EOMI, no lid lag, anicteric sclera Mouth: no lip lesion, mucus membranes moist Cardiovascular: S1S2 reg, no murmur, positive posterior tibial pulse bilateral, Lungs: CTA bilateral, no rhonchi, no rales , no accessory muscle use Abdominal: soft, nontender to palpation, no guarding, no appreciable organomegaly Ext: no gross muscle atrophy, 1+ edema, no contractures Neuro: CN II-XI grossly intact, no focal neuro deficits Psych: Alert, oriented, appropriate affect A total of 35 minutes of time were spent preparing this complex discharge summary . Pertinent Studies: echo - ef 60-65%, moderate LVH CT abd/pelvis- fluid filled small bowel coorlate wtih gastroenteritis, 2.5 cm adrenal nodule, colonic diverticulosis Patient Condition at Discharge: Stable Plan - Discharge Summary Discharge Rx Participant: Yes New Discharge Prescriptions: New Pantoprazole [Protonix] 40 mg PO AC-BID #60 tablet. Acetaminophen Tab [Tylenol] 650 mg PO Q6HR PRN tab PRN Reason: Fever and/ or Mild Pain traMADol HCl [Ultram] 50 mg PO TID PRN #21 tab PRN Reason: Headache Continue Pravastatin Sodium [Pravachol] 20 mg PO DAILY Vitamin E 1,000 unit PO DAILY Selenium 100 mcg PO DAILY Multivitamins, Thera [Multivitamin (formulary)] 1 tab PO DAILY Irbesartan 300 mg PO DAILY Glucosamine Sulfate 500 mg PO BID Cholecalciferol [Vitamin D3] 1,000 unit PO DAILY ALPRAZolam [Xanax] 0.5 mg PO DAILY PRN PRN Reason: Anxiety Discontinued Aspirin [Leon Aspirin EC] 81 mg PO DAILY Ascorbic Acid [Vitamin C] 500 mg PO DAILY Discharge Medication List ALPRAZolam [Xanax] 0.5 mg PO DAILY PRN 01/02/19 [History] Cholecalciferol [Vitamin D3] 1,000 unit PO DAILY 01/02/19 [History] Glucosamine Sulfate 500 mg PO BID 01/02/19 [History] Irbesartan 300 mg PO DAILY 01/02/19 [History] Multivitamins, Thera [Multivitamin (formulary)] 1 tab PO DAILY 01/02/19 [History] Pravastatin Sodium [Pravachol] 20 mg PO DAILY 01/02/19 [History] Selenium 100 mcg PO DAILY 01/02/19 [History] Vitamin E 1,000 unit PO DAILY 01/02/19 [History] Acetaminophen Tab [Tylenol] 650 mg PO Q6HR PRN tab 01/06/19 [Rx] Pantoprazole [Protonix] 40 mg PO AC-BID #60 tablet. 01/06/19 [Rx] traMADol HCl [Ultram] 50 mg PO TID PRN #21 tab 01/06/19 [Rx] Follow up Appointment(s)/Referral(s): Jarod Whittaker DO [Primary Care Provider] - 1-2 days Sudheer Shen MD [STAFF PHYSICIAN] - 2 Weeks Patient Instructions/Handouts: Peptic Ulcer (DC), Diet for Stomach Ulcers and Gastritis (GEN) Activity/Diet/Wound Care/Special Instructions: Diet: low acid Activity: as tolerated Monitor for frequent bowel movement or dark tarry stools of bright red blood in stools. Discharge Disposition: HOME SELF-CARE
== END 2019-01-06 11:00 | disposition home or self-care (01) | DRG 378 ==
LOC: EC 22:30 → 4SSUR 01-03 03:50 → 2SICU 01-03 23:33 → 3NMEDONC 01-05 14:39
PROVIDERS: ADMIT Family Medicine; ATTEND Family Medicine
PROC: 30233N1 Transfusion of Nonautologous Red Blood Cells into Peripheral Vein, Percutaneous Approach (ICD-10-PCS; 2019-01-04)
PROC: 0W3P8ZZ Control Bleeding in Gastrointestinal Tract, Via Natural or Artificial Opening Endoscopic (ICD-10-PCS; principal; 2019-01-04 08:30)
PROC: 3E0G8GC Introduction of Other Therapeutic Substance into Upper GI, Via Natural or Artificial Opening Endoscopic (ICD-10-PCS; 2019-01-04 08:30)
DX: K25.4 Chronic or unspecified gastric ulcer with hemorrhage (principal); D62 Acute posthemorrhagic anemia; I47.2 Ventricular tachycardia; Z68.41 Body mass index [BMI] 40.0-44.9, adult; I95.9 Hypotension, unspecified; E66.01 Morbid (severe) obesity due to excess calories; E86.9 Volume depletion, unspecified; E78.5 Hyperlipidemia, unspecified; I10 Essential (primary) hypertension; K57.30 Diverticulosis of large intestine without perforation or abscess without bleeding; T39.395A Adverse effect of other nonsteroidal anti-inflammatory drugs [NSAID], initial encounter; R51 Headache; Z79.82 Long term (current) use of aspirin; Z79.899 Other long term (current) drug therapy; Z87.891 Personal history of nicotine dependence; Z88.2 Allergy status to sulfonamides; Z98.51 Tubal ligation status; Z96.60 Presence of unspecified orthopedic joint implant
CPT/HCPCS: 36415; 43243; 43255; 74018; 74177; 80048; 80053; 81001; 82272; 83605; 83690; 83735; 84100; 84484; 85025; 85027; 85610; 86850; 86900; 86901; 86920; 93005; 93306; 96360; 99285

== ENCOUNTER 2019-02-26 09:12 | Day surgery (SDC) | payer BC, MEDICARE ==
[2019-02-24 11:54] VITALS: BMI 40.9
[~2019-02-26 09:12] MED LIST: LACTATED RINGERS 1,000 ML IV SCH; LIDOCAINE 1% 20 ML VIAL (10MG/ML) FOR IV START INTRADERMA PRN
[2019-02-26 09:35] VITALS: TEMP 97
[2019-02-26] MEDS ORDERED: PROPOFOL 10 MG/ML 20 ML VIAL IV ONE (10:00)
[2019-02-26] MEDS ORDERED: fentaNYL (PF) 50 MCG/ML 2 ML AMP ONE (10:00)
[2019-02-26] MEDS ORDERED: LIDOCAINE 1% INJ 10MG/ML (20 ML MDV) ONE (10:00)
--- NOTE | 2019-02-26 10:30 | P.PCN ---
Date of Procedure: 02/26/19 Description of Procedure: BRIEF HISTORY: 68-year-old female patient with a medical history significant for hypertension, hyperlipidemia and recent upper GI bleed secondary to an antral ulcer was seen in follow-up. At that time the patient had been using ibuprofen [id number] for 2 weeks. She reported black bowel movements on presentation but denies any gross rectal bleeding. She has no prior history of GI bleeding. Hemoglobin on presentation had been 10.7 and trended to 9.2. She was taken for upper endoscopy with findings of an antral ulcer with actively oozing blood which was treated with epinephrine injection and clip placement. The patient has been on omeprazole twice daily and reports doing well. She currently was diagnosed with temporal arteritis and has been started on steroid therapy. PROCEDURE PERFORMED: Esophagogastroduodenoscopy with biopsy. PREOPERATIVE DIAGNOSIS: History of gastric/antral ulcer, history of upper GI bleed. ESTIMATED BLOOD LOSS: Minimal. IV sedation per anesthesia. PROCEDURE: After informed consent was obtained, the patient was brought into the endoscopy unit. IV sedation was administered by Anesthesia under continuous monitoring. Initially the Olympus GIF-190 video endoscope was inserted into the mouth. Esophagus intubated without any difficulty. It was gradually advanced into the stomach and duodenum and carefully examined. The bulb and the second part of the duodenum appeared normal, with biopsies taken. The scope at this time was withdrawn to the stomach, adequately insufflated with air, and upon careful examination, mucosa of the antrum, body, cardia and the fundus appeared normal, with previously noted antral ulcer healing well with no high risk stigmata for bleeding noted and biopsies of the ulcer taken. The scope was then withdrawn into the esophagus. The GE junction was located at 39 cm from the incisors. The esophagus appeared normal. There were no erosions or ulcerations seen and the patient tolerated the procedure well. IMPRESSION: 1. Well healing antral ulcer, biopsied. 2. Duodenal biopsies. RECOMMENDATIONS: The findings of this examination were discussed with the patient and her . Okay to resume diet. Would continue omeprazole twice daily for an additional 4-6 weeks. After this can decrease to omeprazole once daily indefinitely in the setting of prednisone. Await pathology from biopsies. Follow up with gastroenterology as previously scheduled.
[2019-02-26 10:47] VITALS: BP 135/74; PULSE 55; RESP 16
== END 2019-02-26 11:00 | disposition home or self-care (01) ==
LOC: ORWHC2ENDO 09:12
PROVIDERS: ATTEND Internal Medicine
DX: K25.9 Gastric ulcer, unspecified as acute or chronic, without hemorrhage or perforation (principal); K29.50 Unspecified chronic gastritis without bleeding; Z87.11 Personal history of peptic ulcer disease; Z88.2 Allergy status to sulfonamides; Z88.8 Allergy status to other drugs, medicaments and biological substances; Z79.899 Other long term (current) drug therapy; I10 Essential (primary) hypertension; E78.5 Hyperlipidemia, unspecified; Z79.52 Long term (current) use of systemic steroids
CPT/HCPCS: 88305; 43239; J2001; J3010; J2704

== ENCOUNTER → 2019-05-26 | Outpatient (CLI) | payer BC ==
[2019-05-26 12:26] LABS: Basophils % (A) 0 %; Eosinophils # (A) 0.1 k/uL (0-0.7); Eosinophils % (A) 2 %; HCT 41.2 % (34.0-46.0); HGB 12.9 gm/dL (11.4-16.0); Lymphocytes # (A) 1.8 k/uL (1.0-4.8); Lymphocytes % (A) 33 %; MCH 26.9 pg (25.0-35.0); MCHC 31.4 g/dL (31.0-37.0); MCV 85.6 fL (80.0-100.0); Mean Platelet Volume 6.7; Monocytes # (A) 0.4 k/uL (0-1.0); Monocytes % (A) 6 %; Neutrophils # (A) 3.2 k/uL (1.3-7.7); Neutrophils % (A) 58 %; Platelet Count 208 k/uL (150-450); RBC 4.81 m/uL (3.80-5.40); RDW 15.6 % (11.5-15.5); WBC 5.6 k/uL (3.8-10.6)
[2019-05-26 19:02] LABS: African American GFR (CKD) 74.6 (60.0-200.0); Albumin 4.2 g/dL (3.80-4.90); Albumin/Globulin Ratio 2.33 (1.60-3.17); BUN/Creat Ratio 21.11 Ratio (12.00-20.00); Calcium 10.3 mg/dL (8.7-10.3); Globulin 1.8 g/dL (1.6-3.3); Magnesium 1.8 mg/dL (1.5-2.4); Non-African American GFR(CKD) 64.3 (60.0-200.0); Potassium 3.9 mmol/L (3.5-5.5); Total Bilirubin 0.8 mg/dL (0.3-1.2)
== END | disposition home or self-care (01) ==
LOC: LABWHC1 11:26
PROVIDERS: ATTEND Internal Medicine
DX: K25.4 Chronic or unspecified gastric ulcer with hemorrhage (principal)
CPT/HCPCS: 36415; 80053; 83735; 85025